=== PATIENT | male | born 1960 | race Caucasian/White ===

== ENCOUNTER 2017-10-06 02:49 | Emergency (ER) | payer OTHER | END 2017-10-06 03:30 | disposition home or self-care (01) | LOC: FTE 02:49 | DX: R21 Rash and other nonspecific skin eruption (principal); Z87.891 Personal history of nicotine dependence | CPT/HCPCS: 99282; Z7502 ==

== ENCOUNTER 2017-10-24 12:25 | Emergency (ER) | payer SELFPAY, OTHER | END 2017-10-24 16:20 | disposition left against medical advice (07) | LOC: FTE 12:25 | DX: Z53.21 Procedure and treatment not carried out due to patient leaving prior to being seen by health care provider (principal) ==

== ENCOUNTER 2018-01-31 19:17 | Emergency (ER) | payer OTHER | END 2018-01-31 20:25 | disposition home or self-care (01) | LOC: E/R 20:25 | DX: M54.5 Low back pain (principal) | CPT/HCPCS: 99283; Z7502 ==